=== PATIENT | female | born 1965 | race Caucasian/White ===

== ENCOUNTER 2024-07-04 17:21 | Emergency (ER) | payer OTHER, SELFPAY ==
--- NOTE | ~2024-07-04 | CT_ITS ---
CLINICAL HISTORY: LLQ pain CT abdomen and pelvis with contrast Comparison: None Findings: No consolidation or effusion. Multiple low-attenuation structures are identified within the liver, most consistent with hepatic cysts. The liver appears normal in size and contour. The gallbladder and solid organs are within normal limits. No hydronephrosis or hydroureter. No bowel obstruction, pneumoperitoneum, or pneumatosis. Fluid is identified within the rectal lumen. Pelvic contents unremarkable. Bladder is underdistended, limiting its evaluation. Borderline bladder wall thickening present. Surgically absent appendix. No acute fracture visualized. IMPRESSION: 1. Borderline bladder wall thickening. The bladder is underdistended. The bladder wall thickening may be related to bladder underdistention or subtle cystitis. May consider correlation with urinalysis results for further evaluation. No other CT evidence for an acute inflammatory process identified within the abdomen or pelvis. 2. Mild fluid identified within the rectal lumen, which may be seen in the setting of diarrhea. No bowel obstruction. This document has been electronically signed by: Jurgen Delgado MD on 07/04/2024 23:59:16
[2024-07-04 17:27] VITALS: BP 126/77; PULSE 101; RESP 16; TEMP 37.7; O2SAT 94; BMI 28.3
--- NOTE | 2024-07-04 17:42 | ED.GENADULT ---
HPI - General Adult General Chief complaint: Abdominal Pain Stated complaint: vomiting/diarrhea Time Seen by Provider: 07/04/24 21:38 Source: patient Limitations: no limitations History of Present Illness ED Provider: Eli Coello PA-C HPI narrative: 59-year-old female presents with nausea vomiting and diarrhea x1 week. Associated lower abdominal cramping, generalized malaise, headache, subjective fever and chills. Patient has known sick contacts with same symptoms. Denies recent hospitalization, use of antibiotics or travel. Related Data Previous Rx's ?Medication ?Instructions ?Recorded dicyclomine 20 mg tablet 20 mg PO BID PRN abdominal pain #7 07/05/24 tabs ondansetron HCl 4 mg tablet 4 mg PO Q8H PRN nausea and 07/05/24 vomiting #10 tabs Allergies Allergy/AdvReac Type Severity Reaction Status Date / Time Penicillins Allergy Unknown UNKNOWN Verified 07/04/24 17:40 Sulfa (Sulfonamide Allergy Unknown SWELLING Verified 07/04/24 17:40 Antibiotics) Review of Systems Review of Systems: Yes all other systems are reviewed and are negative Constitutional: Constitutional: Reports chills, Reports fatigue, Reports fever(s) and Reports malaise Cardiovascular: Cardiovascular: Denies chest pain and Denies dyspnea Respiratory: Respiratory: Denies cough and Denies dyspnea Gastrointestinal: Gastrointestinal: Reports abdominal pain, Reports GI cramping, Reports diarrhea, Reports nausea and Reports vomiting Endocrine: Endocrine: Reports fatigue PMFSH Past Medical History Attestation statement: The following information was validated with the patient. Social History Social History Advance Directives: No Advance Directives Information Provided: No Do you have a plan to hurt others: No Plan Physical Exam ED Vital Signs: Vital Signs - 24 hr 07/04/24 17:27 07/04/24 22:48 07/04/24 23:26 Temperature 100 F 97.7 F 97.9 F Pulse Rate 101 H 71 69 Respiratory Rate 16 16 16 Blood Pressure 126/77 109/46 L 109/54 L Pulse Oximetry 94 98 97 Oxygen Delivery Method Room Air Room Air Room Air 07/04/24 23:59 07/05/24 00:24 07/05/24 01:26 Temperature 97.8 F Pulse Rate 64 68 72 Respiratory Rate 18 16 16 Blood Pressure 114/64 155/66 H 117/60 Pulse Oximetry 95 95 97 Oxygen Delivery Method Room Air Room Air Room Air BMI result Body Mass Index 28.3 Const Other: Alert Orientation/consciousness: patient oriented x3 Resp Effort & Inspection: normal respiratory effort Cardio Other: Normal peripheral perfusion GI Other: Abdomen is soft, nondistended, mild to moderate tenderness over left lower quadrant without guarding Skin Other: Warm dry no rash Neuro General: patient oriented x3, gait normal, no focal motor deficits and CN's II-XI intact bilaterally Psych Other: Calm cooperative Course Course Course Narrative: RME performed by Yuli Hill PA-C. Patient is a 59 year old assigned female at presenting to the emergency department with abdominal pain, nausea, and vomiting. Patient states over the last 48 hours she has had nausea, vomiting, and abdominal pain. Detailed physical exam and review of systems are deferred to the professor of anthropology. EKG, labs, and swabs ordered. Patient placed back in the waiting room pending room availability and results. Reevaluation(s) Reevaluation #1: Considering sepsis, likely viral gastro, however she is having objective abdominal pain on exam, obtaining a CT scan. Adding blood cultures, lactic acid, we will give a L of normal saline, she does not require weight based IV fluid therapy given she is normotensive. She does not quite have a fever her temp was 100?, her heart rate is 101. We will give Toradol... Starting ceftriaxone Time: 21:56 Reevaluation #2: CT scan resulted, there was no acute intra-abdominal pathology, as previously suspected, the patient has a viral gastroenteritis, I am not adding additional antibiotic therapy as it is not clinically relevant. Lactic acid was normal. P.o. challenge now Reevaluation #3: Patient ate and drank and eager for discharge Medications Administered Discontinued Medications Generic Name Dose Route Start Last Admin Trade Name Freq PRN Reason Stop Dose Admin Ceftriaxone Sodium 2 gm 07/04/24 21:57 07/04/24 22:19 Ceftriaxone Sodium 2 Gm Vial IVPUSH 07/04/24 21:58 2 gm ONCE ONE Administration Sodium Chloride 1,000 mls @ 999 mls/hr 07/04/24 22:00 07/04/24 23:36 Ns IV 07/04/24 23:00 Infused .Q1H1M BRANDT Infusion Iohexol 85 ml 07/04/24 22:52 07/04/24 22:52 Iohexol 350 Mg/Ml 100 Ml Infus..Btl IV 07/04/24 22:53 85 ml ONCE ONE Administration Ketorolac Tromethamine 15 mg 07/04/24 21:56 07/04/24 22:19 Ketorolac Tromethamine 15 Mg/Ml Vial IVPUSH 07/04/24 21:57 15 mg ONCE ONE Administration Ondansetron HCl 4 mg 07/04/24 21:54 07/04/24 22:19 Ondansetron Hcl 4 Mg/2 Ml Vial IVPUSH 07/04/24 21:55 4 mg ONCE ONE Administration Medical Decision Making Medical Decision Making MDM Narrative: 59-year-old female presents with nausea vomiting and diarrhea x1 week. Associated lower abdominal cramping, generalized malaise, headache, subjective fever and chills. Patient has known sick contacts with same symptoms. Denies recent hospitalization, use of antibiotics or travel. No known chronic issues History: Per patient I have considered the following differential diagnoses: Viral gastroenteritis, C diff, traveler's diarrhea, diverticulitis, sepsis Plan: Given patient has sick contacts with same symptoms, this is likely viral gastroenteritis. Screening labs were already obtained from triage. The patient has a low-grade temperature of 100?, she is mildly tachycardic rate of 101. She is normotensive. I am considering sepsis. Adding blood cultures, lactic acid, starting ceftriaxone, giving a L of fluid, obtaining a CT scan of the abdomen to rule out potential diverticulitis as the cause of the fever, given she has focal left lower quadrant pain. Given Toradol and Zofran. To note she does not require weight based IV fluid therapy as her blood pressures are stable. I have independently reviewed the following tests: Labs: No leukocytosis, not anemic, no electrolyte abnormality, lactic acid 0.8, urine not infected, viral panel neck CT abdomen and pelvis:No consolidation or effusion. Multiple low-attenuation structures are identified within the liver, most consistent with hepatic cysts. The liver appears normal in size and contour. The gallbladder and solid organs are within normal limits. No hydronephrosis or hydroureter. No bowel obstruction, pneumoperitoneum, or pneumatosis. Fluid is identified within the rectal lumen. Pelvic contents unremarkable. Bladder is underdistended, limiting its evaluation. Borderline bladder wall thickening present. Surgically absent appendix. No acute fracture visualized. IMPRESSION: 1. Borderline bladder wall thickening. The bladder is underdistended. The bladder wall thickening may be related to bladder underdistention or subtle cystitis. May consider correlation with urinalysis results for further evaluation. No other CT evidence for an acute inflammatory process identified within the abdomen or pelvis. 2. Mild fluid identified within the rectal lumen, which may be seen in the setting of diarrhea. No bowel obstruction. This document has been electronically signed by: Jurgen Delgado MD on 07/04/2024 23:59:16 Lab Data 07/04/24 17:59 07/04/24 17:59 Labs: Lab Results 07/04/24 07/04/24 Range/Units 17:59 22:09 WBC 7.0 (4.8-10.8) X10*3/uL RBC 4.65 (4.20-5.50) X10*6/uL Hgb 14.2 (12.0-16.0) g/dl Hct 40.6 (37.0-47.0) % MCV 87.3 (80.0-98.0) fL MCH 30.5 (27.0-33.0) pg MCHC 35.0 (31.0-35.0) g/dl RDW 13.5 (11.0-16.0) % Plt Count 191 (160-400) X10*3/uL MPV 10.2 (9.4-12.3) fL Immature Gran % (Auto) 0.3 (0.0-0.4) % Neut % (Auto) 79.6 H (45-73) % Lymph % (Auto) 11.4 L (20-40) % [place] % (Auto) 7.4 (2-11) % Eos % (Auto) 1.0 (0-4) % Baso % (Auto) 0.3 (0-2) % Lymph # (Auto) 0.8 L (1.2-4.9) X10*3/uL [place] # (Auto) 0.5 (0.1-1.2) X10*3/uL Eos # (Auto) 0.1 (0.0-0.4) X10*3/uL Baso # (Auto) 0.0 (0.0-0.2) X10*3/uL Abs Immat Gran (auto) 0.02 (0.00-0.03) X10*3/uL Absolute Neuts (auto) 5.6 (2.0-8.3) x10*3/uL Absolute Nucleated RBC 0.000 (0.0-0.012) X10*3/uL Nucleated RBC % (auto) 0.0 (0.0-0.2) /100WBC Sodium 137 (135-145) mmol/L Potassium 3.6 (3.3-5.1) mmol/L Chloride 107 (96-108) mmol/L Carbon Dioxide 23 (22-29) mmol/L Anion Gap 11 L (12-20) BUN 15 (9-16) mg/dL Creatinine 0.70 (0.5-1.4) mg/dL Estim Creat Clear Calc 83.6 Estimated GFR > 60 Random Glucose 107 (60-115) mg/dL Lactic Acid 0.8 (0.5-2.0) mmol/L Calcium 8.6 (8.4-10.2) mg/dL Magnesium 1.8 (1.6-2.6) mg/dL Total Bilirubin 0.8 (0.0-1.0) mg/dL AST 29 (5-31) U/L ALT 34 H (0-31) U/L Alkaline Phosphatase 53 (39-117) U/L Troponin I High Sens < 2.7 (<3.5-17.0) ng/L Total Protein 7.0 (6.5-8.0) g/dL Albumin 4.3 (3.5-5.0) g/dL Urine Color Dark Yellow Urine Appearance Clear Urine pH 6.5 (5.0-9.0) Ur Specific G[place]ney 1.025 (1.005-1.025) Urine Protein 30 (1+) H (Neg-Trace) mg/dL Urine Glucose (UA) Negative (Negative) mg/dL Urine Ketones Trace (Negative) mg/dL Urine Blood Negative (Negative) Urine Nitrite Negative (Negative) Ur Leukocyte Esterase Small (1+) H (Negative) Urine RBC 0-2 (0-2) /HPF Urine WBC 6-10 H (0-5) /HPF Ur Squamous Epith Cells 3-5 (0-2) /HPF Urine Bacteria 1+ (None Seen) Hyaline Casts 0-2 (0-2) /LPF Influenza Type A (PCR) NEGATIVE (Negative) Influenza Type B (PCR) NEGATIVE (Negative) RSV RNA Qual (PCR) NEGATIVE (Negative) SARS-CoV-2 RNA (RT-PCR) NEGATIVE (Negative) Discharge Plan Discharge Clinical Impression: Gastroenteritis Patient Disposition: Home, Self-Care Instructions: Gastroenteritis (ED) Additional Instructions: There was no acute infection noted on CT scan of your abdomen. You had no lab abnormalities. You are being treated for viral gastroenteritis. See home care instructions. Uses Zofran as needed for nausea, use the dicyclomine as needed for abdominal cramping and diarrhea. Be sure to follow up with your primary care provider next week. Prescriptions: New dicyclomine 20 mg tablet 20 mg PO BID PRN (Reason: abdominal pain) Qty: 7 0RF ondansetron HCl 4 mg tablet 4 mg PO Q8H PRN (Reason: nausea and vomiting) Qty: 10 0RF Print Language: Spanish
--- NOTE | 2024-07-04 17:43 | ECG_ITS ---
Test Reason : N/V Blood Pressure : */* mmHG Vent. Rate : 90 BPM Atrial Rate : 90 BPM P-R Int : 132 ms QRS Dur : 72 ms QT Int : 356 ms P-R-T Axes : 14 -10 -9 degrees QTcB Int : 435 ms Normal sinus rhythm Cannot rule out Anterior infarct , age undetermined Abnormal ECG No previous ECGs available Referred By: Yuli Hill Electronically Signed By: ALLISON LAMAR
[2024-07-04 18:03] LABS: MANUAL DIFF FLAG NO
[2024-07-04 18:05] LABS: Appearance Urine Clear; Color Urine Dark Yellow; Glucose Urine UA Negative (Negative); Leukocyte Esterase Urine Small (1+) (Negative); Nitrite Urine Negative (Negative); PH 6.5 (5.0-9.0); Specific Gravity - Urine 1.025 (1.005-1.025); UMIC TRIGGER UACC YES; Urine Blood Negative (Negative); Urine Ketones Trace mg/dL (Negative); Urine Protein 30 (1+) mg/dL (Neg-Trace)
[2024-07-04 18:08] LABS: Basophils Percent Auto 0.3 % (0-2); Eosinophils Absolute Auto 0.1 X10*3/uL (0.0-0.4); Hematocrit 40.6 % (37.0-47.0); Hemoglobin 14.2 g/dl (12.0-16.0); Imm Gran Abs Auto 0.02 X10*3/uL (0.00-0.03); Imm Gran Pct Auto 0.3 % (0.0-0.4); Lymphocytes Absolute Auto 0.8 X10*3/uL (1.2-4.9); Lymphocytes Percent Auto 11.4 % (20-40); Mean Corpuscular Hemoglobin 30.5 pg (27.0-33.0); Mean Corpuscular Volume 87.3 fL (80.0-98.0); Mean Platelet Volume 10.2 fL (9.4-12.3); Monocytes Absolute Auto 0.5 X10*3/uL (0.1-1.2); Monocytes Percent Auto 7.4 % (2-11); Neutrophils Absolute Auto 5.6 x10*3/uL (2.0-8.3); Neutrophils Percent Auto 79.6 % (45-73); Platelet Count 191 X10*3/uL (160-400); Red Blood Count 4.65 X10*6/uL (4.20-5.50); Red Cell Distribution Width 13.5 % (11.0-16.0)
[2024-07-04 18:12] LABS: Bacteria Urine 1+ (None Seen); Hyaline Casts Urine 0-2 /LPF (0-2); RBC Urine 0-2 /HPF (0-2); UACC Culture Trigger YES
[2024-07-04 18:18] LABS: Alanine Aminotransferase 34 U/L (0-31); Albumin Level 4.3 g/dL (3.5-5.0); Alkaline Phosphatase 53 U/L (39-117); Anion Gap 11 (12-20); Aspartate Amino Transferase 29 U/L (5-31); Bilirubin Total 0.8 mg/dL (0.0-1.0); Blood Urea Nitrogen 15 mg/dL (9-16); Calcium 8.6 mg/dL (8.4-10.2); Carbon Dioxide 23 mmol/L (22-29); Chloride 107 mmol/L (96-108); Creatinine Clr Calc Pharmacy 83.6; Estimated Glomerular Filt Rate > 60; Glucose Random 107 mg/dL (60-115); Magnesium 1.8 mg/dL (1.6-2.6); Potassium 3.6 mmol/L (3.3-5.1); Sodium 137 mmol/L (135-145)
[2024-07-04 18:26] LABS: Troponin-I High Sensitivity < 2.7 ng/L (<3.5-17.0)
[2024-07-04 18:41] LABS: Influenza A PCR NEGATIVE (Negative); Influenza B PCR NEGATIVE (Negative); Resp Syncy Virus RNA Qual PCR NEGATIVE (Negative); SARS COV2 PCR INHOUSE NEGATIVE (Negative)
[2024-07-04] MEDS: 0.9 % Sodium Chloride 1,000 ML 999 ML IV (22:18)
[2024-07-04] MEDS: ondansetron HCL 4 MG/2 ML VIAL IVPUSH (22:19)
[2024-07-04] MEDS: cefTRIAXone sodium 2 GM VIAL IVPUSH (22:19)
[2024-07-04] MEDS: Ketorolac Tromethamine 15 MG/ML VIAL IVPUSH (22:19)
[2024-07-04 22:29] LABS: Lactic Acid 0.8 mmol/L (0.5-2.0)
[2024-07-04 22:48] VITALS: BP 109/46; PULSE 71; RESP 16; TEMP 36.5; O2SAT 98
[2024-07-04] MEDS: iohexoL 350 MG/ML 100 ML INFUS..BTL 85 ML IV (22:52)
[2024-07-04 23:26] VITALS: BP 109/54; PULSE 69; RESP 16; TEMP 36.6; O2SAT 97
[2024-07-04 23:59] VITALS: BP 114/64; PULSE 64; RESP 18; O2SAT 95
[2024-07-05 00:24] VITALS: BP 155/66; PULSE 68; RESP 16; O2SAT 95
[2024-07-05 01:26] VITALS: BP 117/60; PULSE 72; RESP 16; TEMP 36.6; O2SAT 97
[2024-07-05 01:51] VITALS: BP 117/60; PULSE 72; RESP 16; TEMP 36.6; O2SAT 97
== END 2024-07-05 01:53 | disposition home or self-care (01) ==
PROVIDERS: Physician Assistant Medical; Emergency Provider Emergency Medicine; PCP Internal Medicine
DX: K52.9 Noninfective gastroenteritis and colitis, unspecified (principal); R11.2 Nausea with vomiting, unspecified; R10.32 Left lower quadrant pain; Z03.818 Encounter for observation for suspected exposure to other biological agents ruled out
CPT/HCPCS: 0241U; 36415; 74177; 80053; 81001; 83605; 83735; 84484; 85025; 87040; 87086; 93005; 96361; 96374; 96375; 99284; J0696; J1885; J2405; Q9967

== ENCOUNTER → 2024-07-04 17:43 | Outpatient (BNV) | payer OTHER, SELFPAY | PROVIDERS: Emergency Provider Emergency Medicine; PCP Internal Medicine; Visit Provider Internal Medicine | DX: R94.31 Abnormal electrocardiogram [ECG] [EKG] (principal) | CPT/HCPCS: 93010 ==

== ENCOUNTER → 2024-07-04 21:54 | Outpatient (BNV) | payer OTHER, SELFPAY | PROVIDERS: Emergency Provider Emergency Medicine; PCP Internal Medicine; Visit Provider Radiology Diagnostic Radiology | DX: R10.32 Left lower quadrant pain (principal) | CPT/HCPCS: 74177 ==